=== PATIENT | female | born 1975 | race African-American/Black ===

== ENCOUNTER 2019-06-20 11:49 | Emergency (ER) | payer OTHER ==
[~2019-06-20] VITALS: Ht 154.9 cm; Wt 88.0 kg
[2019-06-20 12:48] LABS: HEMATOCRIT 37.4 % (37.0-47.0); HEMOGLOBIN 11.7 gm/dL (12.0-15.0); MCH 20.6 pg (26.0-34.0); MCHC 31.3 g/dL (28.0-37.0); MCV 65.7 fL (80.0-100.0); RBC 5.7 mil/uL (4.20-5.00); RDW 17.7 % (10.5-14.5); WBC 8.6 thou/uL (4.0-11.0)
[2019-06-20 12:55] LABS: CALCIUM 9.2 mg/dL (8.5-10.1); CREATININE 0.9 mg/dL (0.6-1.0); POTASSIUM 3.7 mmol/L (3.5-5.1)
[2019-06-20] MEDS ORDERED: CYCLOBENZAPRINE5 MG PO (14:00)
[2019-06-20] MEDS ORDERED: MEDROLDOSEPACK PO (14:00)
[2019-06-20] MEDS ORDERED: NORCO 7.5-3251 EACH PO (14:00)
[2019-06-20 14:33] VITALS: BP 144/92
== END 2019-06-20 14:40 | disposition home or self-care (01) ==
LOC: ER 11:49
PROVIDERS: Physician Assistant
DX: M54.12 Radiculopathy, cervical region (principal); M25.512 Pain in left shoulder; Z88.5 Allergy status to narcotic agent